=== PATIENT | female | born 1985 | race Caucasian/White ===

== ENCOUNTER 2021-02-23 11:48 | Emergency (ER) | payer OTHER ==
[~2021-02-23] VITALS: Ht 170.2 cm; Wt 71.4 kg
[2021-02-23] MEDS ORDERED: PREN1TAB14 (12:53)
[2021-02-23 13:45] LABS: BASO % 0.3 % (0.0-1.0); EOS # 0.1 10^3/uL (0.0-0.5); EOS % 0.9 % (0.0-3.0); HEMATOCRIT 36.9 % (36.0-47.0); HEMOGLOBIN 12.3 g/dl (12.0-15.5); LYMPH # 1.3 10^3/uL (1.5-5.0); LYMPH % 18.6 % (24.0-44.0); MEAN CORPUSCULAR HEMOGLOBIN 30.4 pg (27.0-33.0); MEAN CORPUSCULAR HGB CONC 33.3 g/dl (32.0-36.5); MEAN CORPUSCULAR VOLUME 91.3 fl (80.0-96.0); MONO # 0.4 10^3/uL (0.0-0.8); MONO % 5.4 % (2.0-8.0); NEUTROPHILS % 74.4 % (36.0-66.0); PLATELET COUNT, AUTOMATED 153 10^3/uL (150-450); RED BLOOD COUNT 4.04 10^6/uL (4.00-5.40); WHITE BLOOD COUNT 6.7 10^3/uL (4.0-10.0)
[2021-02-23 14:05] LABS: BLOOD UREA NITROGEN 10 MG/DL (7-18); CALCIUM LEVEL 9.1 MG/DL (8.5-10.1); CARBON DIOXIDE LEVEL 24 MEQ/L (21-32); CHLORIDE LEVEL 106 MEQ/L (98-107); CREATININE FOR GFR 0.58 MG/DL (0.55-1.30); GLOMERULAR FILTRATION RATE > 60.0 (>60); GLUCOSE, FASTING 88 MG/DL (70-100); POTASSIUM SERUM 4.1 MEQ/L (3.5-5.1); SODIUM LEVEL 139 MEQ/L (136-145)
--- NOTE | 2021-02-23 15:04 | REP ---
INDICATION: right flank pain. COMPARISON: None. TECHNIQUE: Urinary tract sonography. FINDINGS: Scanning at the level of the urinary bladder shows no abnormality. Renal cortical echogenicity pattern is normal bilaterally and contours are smooth. There is no evidence of hydronephrosis, cyst, mass, or calculus in either kidney. The right kidney measures 11.4 x 6.2 x 4.2 cm. Left renal dimensions are 12.6 x 5.2 x 4.7 cm. IMPRESSION: Normal urinary tract sonography. <Electronically signed by Wilder Crook > 02/23/21 1500
--- NOTE | 2021-02-23 15:08 | REP ---
INDICATION: right flank pain, pelvic pain 13 weeks . COMPARISON: None. TECHNIQUE: Real-time sonographic evaluation of gravid uterus performed. FINDINGS: There is a single living intrauterine gestation. The estimated gestational age is 13 weeks 3 days based on a crown-rump length of 73 mm, EDC 08/28/2021. heart rate 158 beats per minute. Placenta is anterior and grade 0. Placenta is somewhat low lying but there is no evidence of placenta previa or abruption. Cervix is closed and measures 3.5 cm in length. Probable corpus luteum in the right ovary measures 2.5 x 1.6 x 1.7 cm, with no evidence of right ovarian torsion. Left ovary is not visualized. IMPRESSION: Viable intrauterine gestation as discussed above. <Electronically signed by Trevor Alcocer > 02/23/21 1099
[2021-02-23 15:37] VITALS: BP 109/63
== END 2021-02-23 15:48 | disposition home or self-care (01) ==
LOC: M ED 11:48
DX: O26.92 Pregnancy related conditions, unspecified, second trimester (principal); O99.891 Other specified diseases and conditions complicating pregnancy; N83.11 Corpus luteum cyst of right ovary; Z3A.13 13 weeks gestation of pregnancy

== ENCOUNTER 2021-07-31 10:10 | Outpatient (CLI) | payer OTHER ==
[~2021-07-31] VITALS: Ht 170.2 cm; Wt 90.6 kg
[~2021-07-31 10:10] MED LIST: PREN1TAB14
[2021-07-31 10:31] VITALS: BP 127/82
[2021-07-31] MEDS ORDERED: OXYM15SP NS (12:29)
[2021-07-31] MEDS ORDERED: COLA100C5 PO (12:30)
[2021-07-31 12:34] VITALS: BP 106/55
== END 2021-07-31 13:21 | disposition home or self-care (01) ==
LOC: M LDO 10:10
PROVIDERS: ATTEND Registered Nurse
DX: O36.8130 Decreased fetal movements, third trimester, not applicable or unspecified (principal); Z3A.35 35 weeks gestation of pregnancy; O47.02 False labor before 37 completed weeks of gestation, second trimester
CPT/HCPCS: 59025; 76815; 76819; 76820; G0378; G0463

== ENCOUNTER 2021-08-25 10:49 | Inpatient (IN) | payer OTHER ==
[2021-08-25] VITALS (19 sets, daily range): BP systolic 103–149; BP diastolic 51–86
[~2021-08-25] VITALS: Ht 170.2 cm; Wt 94.6 kg
[~2021-08-25 10:49] MED LIST changes: +COLA100C5 PO; +OXYM15SP NS
[2021-08-25] MEDS ORDERED: TRANEXAMIC ACID INJection 1,000 MG in NS 100 ML IV PRN (11:05)
[2021-08-25] MEDS ORDERED: CARBOPROST TROMETHAMINE 250 MCG/ML AMP IM PRN (11:05)
[2021-08-25] MEDS ORDERED: METHYLERGONOVINE MALEATE 0.2 MG/ML VIAL (J2210) IM PRN (11:05)
[2021-08-25] MEDS ORDERED: LIDOCAINE 1% MDV 20ML VIAL INFIL PRN (11:05)
[2021-08-25] MEDS ORDERED: OXYTOCIN DRIP 30 UNITS in IV 1 EA IV PRN ×4 (11:05)
[2021-08-25] MEDS ORDERED: LR 1,000 ML IV SCH (11:05)
[2021-08-25] MEDS ORDERED: PRENTAB9 PO (11:22)
[2021-08-25] MEDS ORDERED: HOME MED LIST COMPLETE! XX SCH (11:45)
[2021-08-25 11:51] LABS: HEMATOCRIT 38.3 % (36.0-47.0); HEMOGLOBIN 12.9 g/dl (12.0-15.5); MEAN CORPUSCULAR HEMOGLOBIN 31.1 pg (27.0-33.0); MEAN CORPUSCULAR HGB CONC 33.7 g/dl (32.0-36.5); MEAN CORPUSCULAR VOLUME 92.3 fl (80.0-96.0); PLATELET COUNT, AUTOMATED 154 10^3/uL (150-450); RED BLOOD COUNT 4.15 10^6/uL (4.00-5.40); WHITE BLOOD COUNT 10.6 10^3/uL (4.0-10.0)
[2021-08-25] MEDS ORDERED: FENTANYL 2MCG/ML ROPIVACAINE 0.2% IN 0.9% NACL 100ML IVBAG As Ordered ONE (12:37)
[2021-08-25] MEDS ORDERED: diphenhydrAMINE 50MG/ML VIAL (J1200) IV PRN (13:40)
[2021-08-25] MEDS ORDERED: REFRIGERATOR IV KEYS XX PRN (13:40)
[2021-08-25] MEDS ORDERED: ePHEDrine SULFATE 25 MG/5 ML(5MG/ML) SYRINGE IV PRN (13:40)
[2021-08-25] MEDS ORDERED: ONDANSETRON 4MG/2ML VIAL IV PRN (13:40)
[2021-08-25] MEDS ORDERED: LACTATED RINGER'S 1000 ML IV PRN (13:40)
[2021-08-25] MEDS ORDERED: EPIDURAL COMMENT XX SCH (13:40)
[2021-08-25] MEDS ORDERED: FENTANYL/ROPIVACAINE/NACL BAG 100 ML EPIDURAL SCH (13:40)
[2021-08-25] MEDS ORDERED: NALOXONE INJ 0.4MG/1ML VIAL (J2310 PER 1MG) IV PRN (13:40)
[2021-08-25] MEDS ORDERED: EPIDURAL/PCA KEYS XX PRN (13:40)
[2021-08-25 18:03] LABS: CORD GAS ABE V -3.6; CORD GAS HCO3 V 22.3 MEQ/L; CORD GAS O2 SAT V 74.1 %; CORD GAS PCO2 V 42.9 mmHg; CORD GAS PH V 7.333 UNITS; CORD GAS PO2 V 32.9 mmHg; CORD GAS TCO2 V 23.6 MEQ/L
[2021-08-25] MEDS ORDERED: ACETAMINOPHEN TAB 650MG DOSE (2X325MG) PO PRN (18:25)
[2021-08-25] MEDS ORDERED: IBUPROFEN 800 MG TAB PO PRN (18:25)
[2021-08-25] MEDS ORDERED: METHYLERGONOVINE MALEATE 0.2 MG TAB PO PRN (18:25)
[2021-08-25] MEDS ORDERED: IBUPROFEN 600MG TAB PO PRN (18:25)
[2021-08-25] MEDS ORDERED: DOCUSATE SODIUM 100MG CAPSULE PO PRN (18:25)
[2021-08-25] MEDS ORDERED: DIBUCAINE 1% OINTMENT 30GM TOP PRN (18:25)
[2021-08-25] MEDS: ACETAMINOPHEN 500 MG TAB PO PRN (23:36)
[2021-08-26 06:00] VITALS: BP 92/52
[2021-08-26] MEDS: ACETAMINOPHEN 500 MG TAB PO PRN (07:27)
[2021-08-26] MEDS ORDERED: PRENATAL VITAMINS CHEWABLE TABLET PO SCH (09:00)
== END 2021-08-26 16:00 | disposition home or self-care (01) | DRG 807 ==
LOC: M LDI 10:49 → M OBS 20:19
PROVIDERS: ADMIT Advanced Practice Midwife; ATTEND Advanced Practice Midwife
PROC: 10E0XZZ Delivery of Products of Conception, External Approach (ICD-10-PCS; principal; 2021-08-25)
PROC: 0HQ9XZZ Repair Perineum Skin, External Approach (ICD-10-PCS; 2021-08-25)
DX: O77.0 Labor and delivery complicated by meconium in amniotic fluid (principal); Z37.0 Single live birth; Z3A.39 39 weeks gestation of pregnancy; O70.0 First degree perineal laceration during delivery; O26.00 Excessive weight gain in pregnancy, unspecified trimester; O69.1XX0 Labor and delivery complicated by cord around neck, with compression, not applicable or unspecified; Z87.59 Personal history of other complications of pregnancy, childbirth and the puerperium